=== PATIENT | female | born 1955 | race American Indian/Alaskan Native ===

== ENCOUNTER 2016-07-20 20:18 | Emergency (ER) | payer BC ==
[2016-07-20 23:26] LABS: Basophils % (Auto) 0.5 % (0.0-1.8); Eosinophils % (Auto) 0.2 % (0.0-4.3); Hematocrit 43.8 % (30.3-42.9); Hemoglobin 14.7 gm/dl (10.1-14.3); Mean Corpuscular HGB Conc 34 % (30-34); Mean Corpuscular Hemoglobin 29 pg (28-32); Mean Corpuscular Volume 87 fl (79-97); Platelet Count 274 K/mm3 (140-440); Red Blood Count 5.04 M/mm3 (3.65-5.03); Red Cell Distribution Width 13.3 % (13.2-15.2); White Blood Count 10.9 K/mm3 (4.5-11.0)
[2016-07-20 23:46] LABS: Anion Gap 19 mmol/L; BUN/Creatinine Ratio 16.25; Blood Urea Nitrogen 13 mg/dL (7-17); Calcium 8.7 mg/dL (8.4-10.2); Carbon Dioxide 23 mmol/L (22-30); Chloride 99.6 mmol/L (98-107); Glucose 121 mg/dL (65-100); Sodium 138 mmol/L (137-145)
[2016-07-21 00:46] LABS: Bilirubin,Urine NEG (Negative)
[2016-07-21 00:47] LABS: Bacteria,Urine 1+ /HPF (Negative); Blood,Urine SM (Negative); Ketones,Urine NEG (Negative); Leukocyte Esterase,Urine LG (Negative); Mucus,Urine FEW /HPF; Nitrite,Urine NEG (Negative); Protein,Urine <15 mg/dL mg/dL (Negative); Urobilinogen,Urine < 2.0 mg/dL (<2.0)
--- NOTE | 2016-07-21 08:34 | Emergency Department Report ---
HPI - General Chief Complaint: Pain General Time Seen by Provider: 07/21/16 08:17 - HPI HPI: Chief complaint: Increased urination HPI: Patient is 60-year-old female with a history of hypertension who states she 's been having increased urination for the last 1-1/2 weeks. Patient denies a history of diabetes. Patient denies urgency or dysuria. Slight nausea but no fever or vomiting. Patient states she has slight loose stool today. Mode of arrival: [private car] Source: [Patient] and nursing notes Began: One and a half weeks Duration: See above Context: No abdominal pain Quality: Pain-free Severity: 0 out of 10 Improved with: Nothing Worsened with: Nothing Associated signs and symptoms: See above ED Past Medical Hx - Past Medical History Previous Medical History?: Yes Hx Hypertension: Yes - Surgical History Past Surgical History?: No - Social History Smoking Status: Never Smoker Substance Use Type: None - Medications Home Medications: Home Medications Medication Instructions Recorded Confirmed Last Taken Type Amlodipine-Valsartan 10-160 mg 1 tab PO DAILY 07/20/16 07/20/16 Unknown History Metoprolol Xl 100 mg PO BID 07/20/16 07/20/16 Unknown History Fluconazole [Diflucan TAB] 150 mg PO ONCE #1 tablet 07/21/16 Unknown Rx Fluticasone [Flonase] 1 spray NS QDAY #1 bottle 07/21/16 Unknown Rx Sulfamethoxazole/Trimethoprim 1 each PO BID #20 tablet 07/21/16 Unknown Rx [Bactrim DS TAB] ED Review of Systems ROS: Stated complaint: BODY PAIN, FREQUENT VOIDING,DIARRHEA Other details as noted in HPI ROS Constitutional: No fever , patient states she lays back she feels a strange feeling in her head and when she sits up sometimes she has some spinning. Denies sinus problems or headache. ENT: No uri symptoms Cardiovascular: Patient states she occasionally has a sharp pain under her left breast that is worse with movement. Patient is not having that right now. Respiratory: No sob or cough GI: No nausea vomiting or diarrhea : No dysuria frequency or urgency, Skin: No rash Neuro: No focal weakness or numbness Psych: No depression Jono/lymph: No edema Physical Exam - Physical Exam Vital Signs: Vital Signs 07/20/16 07/21/16 22:36 05:23 Temperature 98.3 F 97.8 F Pulse Rate 106 H 74 Respiratory 18 18 Rate Blood Pressure 149/80 Blood Pressure 170/95 [Left] O2 Sat by Pulse 99 98 Oximetry Physical Exam: GENERAL: The patient is well-developed well-nourished . HEENT: Normocephalic. Atraumatic. Extraocular motions are intact. Patient has moist mucous membranes. TMs negative. Slight swelling nasal closer with yellow crusting discharge. No sinus tenderness to palpation. NECK: Supple. No meningitic signs are noted. There is no adenopathy noted. CHEST/LUNGS: Clear to auscultation. There is no respiratory distress noted. Chest wall nontender to palpation. HEART/CARDIOVASCULAR: Regular. There is no tachycardia. There is no gallop rub or murmur. ABDOMEN: Abdomen is soft, nontender. Patient has normal bowel sounds. There is no abdominal distention. SKIN: There is no rash. There is no edema. There is no diaphoresis. NEURO: The patient is awake, alert, and oriented. The patient is cooperative. The patient has no focal neurologic deficits. The patient has normal speech. MUSCULOSKELETAL: There is no tenderness or deformity. There is no limitation range of motion. There is no evidence of acute injury. ED Course Vital Signs 07/20/16 07/21/16 22:36 05:23 Temperature 98.3 F 97.8 F Pulse Rate 106 H 74 Respiratory 18 18 Rate Blood Pressure 149/80 Blood Pressure 170/95 [Left] O2 Sat by Pulse 99 98 Oximetry ED Medical Decision Making - Lab Data Result diagrams: 07/20/16 23:10 07/20/16 23:10 Laboratory Tests 07/20/16 23:35 Ur Leukocyte Esterase Lg Urine WBC (Auto) 77.0 H Urine RBC (Auto) 4.0 U Epithel Cells (Auto) < 1.0 Urine Bacteria (Auto) 1+ Critical care attestation.: If time is entered above; I have spent that time in minutes in the direct care of this critically ill patient, excluding procedure time. ED Disposition Clinical Impression: UTI (urinary tract infection) Qualifiers: Urinary tract infection type: site unspecified Hematuria presence: without hematuria Qualified Code(s): N39.0 - Urinary tract infection, site not specified Sinusitis Qualifiers: Sinusitis location: unspecified location Chronicity: unspecified Qualified Code (s): J32.9 - Chronic sinusitis, unspecified Disposition: DISCHARGED TO HOME OR SELFCARE Is pt being admited?: No Does the pt Need Aspirin: No Condition: Stable Instructions: Urinary Tract Infection in Women (ED), Sinusitis (ED) Prescriptions: Fluconazole [Diflucan TAB] 150 mg PO ONCE #1 tablet Fluticasone [Flonase] 1 spray NS QDAY #1 bottle Sulfamethoxazole/Trimethoprim [Bactrim DS TAB] 1 each PO BID #20 tablet Referrals: NILSON KAPLAN MD [Primary Care Provider] - 3-5 Days Time of Disposition: 08:31
[2016-07-21 09:03] VITALS: BP 149/72
== END 2016-07-21 09:03 | disposition home or self-care (01) ==
LOC: ED 20:18
DX: N39.0 Urinary tract infection, site not specified (principal); J32.9 Chronic sinusitis, unspecified; I10 Essential (primary) hypertension
CPT/HCPCS: 36415; 80048; 81001; 82962; 85025; 99283

== ENCOUNTER 2020-04-28 23:10 | Emergency (ER) | payer BC ==
[2020-04-29 03:04] VITALS: BP 154/72
--- NOTE | 2020-04-29 04:14 | XRay Report ---
LEFT FOOT RADIOGRAPH, 3 VIEWS INDICATION / CLINICAL INFORMATION: left foot pain COMPARISON: None available. FINDINGS: BONES / JOINT(S): There is lateral subluxation of the fourth toe at the level of the proximal interph alangeal joint. There is a small ossific density along the medial aspect of the fourth toe proximal p halanx which may reflect an adjacent small avulsed fracture fragment. No additional acute displaced f racture identified. SOFT TISSUES: No significant abnormality. ADDITIONAL FINDINGS: None. Signer Name: Arelis Fuentes MD Signed: 04/29/2020 4:10 AM Workstation Name: [id number]
[2020-04-29] MEDS ORDERED: LIDOCAINE-MPF (1%) 10 MG/1 ML VIAL 5 ML INFILTRATI ONE (05:49)
[2020-04-29] MEDS ORDERED: ONDANSETRON 4 MG ODT TAB PO ONE (05:49)
[2020-04-29] MEDS ORDERED: IBUPROFEN 600 MG TAB PO ONE (05:49)
[2020-04-29] MEDS ORDERED: HYDROcodone/ACETAMINOPHEN 7.5-325MG TAB PO ONE (05:50)
--- NOTE | 2020-04-29 06:40 | Emergency Department Report ---
ED Lower Extremity HPI - General Chief Complaint: Extremity Injury, Lower Stated Complaint: FOOT INJURY Source: patient Mode of arrival: Ambulatory Limitations: No Limitations - History of Present Illness Initial Comments: Patient is a 64-year-old -[place] female with a history of hypertension who presents to the ED with complaint of acute onset persistent severe left foot and left fourth toe pain after she slipped on the floor and fell down on a ceramic tile floor and in the process landed on her left foot in a flexed position about 8 hours ago. Patient states that the pain has been persistent and that the swelling has also worsened. Patient states that the pain is worse with ambulation. Patient denies head or neck injuries, back pain, hip pain, knee pain, dizziness, syncope, loss of consciousness, headache, nausea and vomiting, change in vision, numbness and tingling or weakness of lower extremities bilaterally. MD Complaint: foot injury (left foot pain) -: Sudden, hour(s) (8) Injury: Foot: Left (left foot pain), Toes: Left (left 4th toe pain ) Type of Injury: eversion, hyperflexion, other (fall) Place: home Severity: severe Severity scale (0 -10): 8 Improves With: nothing Worsens With: weight bearing, movement, palpation Context: fall, other (slipped and fell down at home and landed on left foot ) Associated Symptoms: snap/pop sensation, swelling, able to partially bear weight. denies: numbness, tingling, unable to bear weight - Related Data Home Medications Medication Instructions Recorded Confirmed Last Taken Amlodipine-Valsartan 10-160 mg 1 tab PO DAILY 07/20/16 07/20/16 Unknown Metoprolol Xl 100 mg PO BID 07/20/16 07/20/16 Unknown Previous Rx's Medication Instructions Recorded Last Taken Type Fluconazole (Nf) [Diflucan TAB] 150 mg PO ONCE #1 tablet 07/21/16 Unknown Rx Fluticasone [Flonase] 1 spray NS QDAY #1 bottle 07/21/16 Unknown Rx Sulfamethoxazole/Trimethoprim 1 each PO BID #20 tablet 07/21/16 Unknown Rx [Bactrim DS TAB] Acetaminophen/Codeine [Tylenol 1 tab PO Q6H PRN #12 tab 04/29/20 Unknown Rx /Codeine # 3 tab] Ibuprofen [Motrin] 600 mg PO Q8H PRN #30 tablet 04/29/20 Unknown Rx Allergies Allergy/AdvReac Type Severity Reaction Status Date / Time No Known Allergies Allergy Verified 07/20/16 22:39 ED Review of Systems ROS: Stated complaint: FOOT INJURY Other details as noted in HPI Constitutional: denies: chills, fever Eyes: denies: eye pain, eye discharge, vision change ENT: denies: ear pain, throat pain Respiratory: denies: cough, shortness of breath, wheezing Cardiovascular: denies: chest pain, palpitations Endocrine: no symptoms reported Gastrointestinal: denies: abdominal pain, nausea, diarrhea Genitourinary: denies: urgency, dysuria, discharge Musculoskeletal: joint swelling (left 4th toe swelling and pain), arthralgia (left foot and left 4th toe pain). denies: back pain Skin: denies: rash, lesions Neurological: denies: headache, weakness, paresthesias Psychiatric: denies: anxiety, depression Hematological/Lymphatic: denies: easy bleeding, easy bruising ED Past Medical Hx - Past Medical History Previous Medical History?: Yes Hx Hypertension: Yes Hx Liver Disease: Yes - Surgical History Past Surgical History?: No - Social History Smoking Status: Never Smoker Substance Use Type: None - Medications Home Medications: Home Medications Medication Instructions Recorded Confirmed Last Taken Type Amlodipine-Valsartan 10-160 mg 1 tab PO DAILY 07/20/16 07/20/16 Unknown History Metoprolol Xl 100 mg PO BID 07/20/16 07/20/16 Unknown History Fluconazole (Nf) [Diflucan TAB] 150 mg PO ONCE #1 tablet 07/21/16 Unknown Rx Fluticasone [Flonase] 1 spray NS QDAY #1 bottle 07/21/16 Unknown Rx Sulfamethoxazole/Trimethoprim 1 each PO BID #20 tablet 07/21/16 Unknown Rx [Bactrim DS TAB] Acetaminophen/Codeine [Tylenol 1 tab PO Q6H PRN #12 tab 04/29/20 Unknown Rx /Codeine # 3 tab] Ibuprofen [Motrin] 600 mg PO Q8H PRN #30 tablet 04/29/20 Unknown Rx ED Physical Exam - General Limitations: No Limitations General appearance: alert, in no apparent distress - Head Head exam: Present: atraumatic, normocephalic, normal inspection - Eye Eye exam: Present: normal appearance, PERRL, EOMI Pupils: Present: normal accommodation - ENT ENT exam: Present: normal exam, normal orophraynx, mucous membranes moist, TM's normal bilaterally, normal external ear exam - Neck Neck exam: Present: normal inspection, full ROM - Respiratory Respiratory exam: Present: normal lung sounds bilaterally. Absent: respiratory distress, wheezes, rales, rhonchi, stridor, chest wall tenderness, accessory muscle use, decreased breath sounds, prolonged expiratory - Cardiovascular Cardiovascular Exam: Present: regular rate, normal rhythm, normal heart sounds. Absent: systolic murmur, diastolic murmur, rubs, gallop - GI/Abdominal GI/Abdominal exam: Present: soft, normal bowel sounds. Absent: tenderness, guarding, rebound, hyperactive bowel sounds, hypoactive bowel sounds, organomegaly - Extremities Exam Extremities exam: Present: normal inspection, tenderness (Palpable left 4th toe and foot tenderness with mild swelling and limited ROM due to pain), normal capillary refill, joint swelling (Swollen tender left 4th toe and foot). Absent: full ROM (limioted ROM of left 4th toe due to pain), pedal edema - Back Exam Back exam: Present: normal inspection, full ROM. Absent: tenderness, CVA tenderness (R), CVA tenderness (L), muscle spasm, paraspinal tenderness, vertebral tenderness - Neurological Exam Neurological exam: Present: alert, oriented X3, CN II-XII intact, normal gait, reflexes normal - Psychiatric Psychiatric exam: Present: normal affect, normal mood - Skin Skin exam: Present: warm, dry, intact, normal color. Absent: rash ED Course Vital Signs 04/29/20 03:03 Temperature 97.9 F Pulse Rate 83 Respiratory 18 Rate Blood Pressure 154/72 [Left] O2 Sat by Pulse 100 Oximetry - Orthopedic Joint Reduction Joint #1 Consent Obtained: verbal consent Time Out Performed: Yes Side: left Joint Reduction Location: toe (left 4th toe) Analgesia: digital block Local Anesthetic Used: Lidocaine 1% Amount of Anesthetic Used (mls): 5 Technique Used: direct manipulation Post-Reduction Neuro Exam: intact Post-Reduction Vascular Exam: intact Post Reduction X-Ray Obtained: Yes Post Reduction X-Ray Results: reduced Splint Applied: Yes Patient Tolerated Procedure: well ED Lower Extremity MDM - Radiology Data Radiology results: report reviewed, image reviewed Findings [facility] [address] [place] [address] XRay Report Signed Patient: NAZARIO HOLGUIN MR#: [id number] : 1955 Acct:[id number] Age/Sex: 64 / F ADM Date: 04/28/20 Loc: ED Attending Dr: Ordering Physician: ALEXA LEA MD Date of Service: 04/29/20 Procedure(s): XR foot 3+V LT Accession Number(s): [id number] cc: ED MD LEONORA Fluoro Time In Minutes: LEFT FOOT RADIOGRAPH, 3 VIEWS INDICATION / CLINICAL INFORMATION: left foot pain COMPARISON: None available. FINDINGS: BONES / JOINT(S): There is lateral subluxation of the fourth toe at the level of the proximal interphalangeal joint. There is a small ossific density along the medial aspect of the fourth toe proximal phalanx which may reflect an adjacent small avulsed fracture fragment. No additional acute displaced fracture identified. SOFT TISSUES: No significant abnormality. ADDITIONAL FINDINGS: None. Signer Name: Arelis Fuentes MD Signed: 04/29/2020 4:10 AM Workstation Name: [id number] Transcribed By: [facility] Dictated By: Arelis Fuentes MD Electronically Authenticated By: Arelis Fuentes MD Signed Date/Time: 04/29/20409 DD/ 6 TD/TT: Findings [facility] [address] [place] [address] XRay Report Signed Patient: NAZARIO HOLGUIN MR#: [id number] : 1955 Acct:[id number] Age/Sex: 64 / F ADM Date: 04/28/20 Loc: ED Attending Dr: Ordering Physician: NINA CANADA Date of Service: 04/29/20 Procedure(s): XR foot 2V LT Accession Number(s): [id number] cc: NINA [place] Fluoro Time In Minutes: LEFT FOOT RADIOGRAPH, 2 VIEWS INDICATION / CLINICAL INFORMATION: Post-reduction x-ray of left 4th toe COMPARISON: Left foot radiograph earlier same day FINDINGS: There has been interval reduction of the fourth toe which now appears to be in normal anatomic alignment. The adjacent small fracture fragment is again seen. Overlying soft tissue swelling is noted. Signer Name: Arelis Fuentes MD Signed: 04/29/2020 7:29 AM Workstation Name: [id number] Transcribed By: [facility] Dictated By: Arelis Fuentes MD Electronically Authenticated By: Arelis Fuentes MD Signed Date/Time: 04/29/20728 DD/ 6 TD/TT: - Medical Decision Making This is a 64-year-old -[place] female with a history of hypertension who presents to the ED with complaint of acute onset persistent severe left foot and left fourth toe pain after she slipped on the floor and fell down on a ceramic tile floor and in the process landed on her left foot in a flexed position about 8 hours ago. Patient states that the pain has been persistent and that the swelling has also worsened. Patient states that the pain is worse with ambulation. In the ED, patient is alert and oriented x3 and is not in distress but appears to be in pain. Patient was treated for pain in the ED and left foot x-ray showed a lateral subluxation of the fourth toe at the level of the proximal interphalangeal joint. There is a small ossific density along the medial aspect of the fourth toe proximal phalanx which may reflect an adjacent small avulsed fracture fragment. No additional acute displaced fracture identified. The patient's dislocated left fourth toe was reduced manually after application of lidocaine 1% solution as a local anesthesia. Patient tolerated the procedure well. The post reduction right foot x-ray showed a normal anatomical alignment of the left fourth toe at the PIP joint revealing a successful reduction. Patient left foot was fitted with postop shoe and the left fourth toe jamil taped with left third toe. Patient was therefore discharged home on pain medications and given a referral to the orthopedic surge on on-call Dr. Singh for follow-up. Patient was advised to contact Dr. Singh's office first thing in the morning on Thursday, April 30, 2020 to schedule a follow-up appointment. Patient was otherwise advised to return to the ED immediately if symptoms get worse. - Differential Diagnosis Toe fracture; foot fracture; Foot sprain; Toe sprain; Toe dislocation Critical care attestation.: If time is entered above; I have spent that time in minutes in the direct care of this critically ill patient, excluding procedure time. ED Disposition Clinical Impression: Closed dislocation of fourth toe of left foot Qualifiers: Encounter type: initial encounter Qualified Code(s): S93.105A - Unspecified dislocation of left toe(s), initial encounter Closed fracture of phalanx of left fourth toe Qualifiers: Encounter type: initial encounter Qualified Code(s): S92.502A - Displaced unspecified fracture of left lesser toe(s), initial encounter for closed fracture Sprain of left foot Qualifiers: Encounter type: initial encounter Qualified Code(s): S93.602A - Unspecified sprain of left foot, initial encounter Disposition: TO HOME OR SELFCARE Is pt being admited?: No Does the pt Need Aspirin: No Condition: Stable Instructions: Toe Fracture, [id number], Toe Dislocation, [id number], Foot Sprain Additional Instructions: The left foot x-ray shows left fourth toe dislocation and avulsion fracture at the PIP joint. Therefore take medications with food, drink plenty of fluids and follow-up with the orthopedic surgeon Dr. Singh for further evaluation. Contact Dr. Singh's office first thing in the morning on Thursday April 30, 2020 to schedule a follow-up appointment. Return to the ED immediately if symptoms get worse. Prescriptions: Ibuprofen [Motrin] 600 mg PO Q8H PRN #30 tablet PRN Reason: Pain Acetaminophen/Codeine [Tylenol /Codeine # 3 tab] 1 tab PO Q6H PRN #12 tab PRN Reason: Severe pain Referrals: LORRAINE SINGH MD [Staff Physician] - 2-3 Days NILSON KAPLAN MD [Primary Care Provider] - 3-5 Days Time of Disposition: 06:43 Print Language: VENEZUELAN
--- NOTE | 2020-04-29 07:33 | XRay Report ---
LEFT FOOT RADIOGRAPH, 2 VIEWS INDICATION / CLINICAL INFORMATION: Post-reduction x-ray of left 4th toe COMPARISON: Left foot radiograph earlier same day FINDINGS: There has been interval reduction of the fourth toe which now appears to be in normal anatomic alignm ent. The adjacent small fracture fragment is again seen. Overlying soft tissue swelling is noted. Signer Name: Arelis Fuentes MD Signed: 04/29/2020 7:29 AM Workstation Name: [id number]
== END 2020-04-29 07:19 | disposition home or self-care (01) ==
LOC: ED 23:10
DX: S93.115A Dislocation of interphalangeal joint of left lesser toe(s), initial encounter (principal); S92.512A Displaced fracture of proximal phalanx of left lesser toe(s), initial encounter for closed fracture; S93.602A Unspecified sprain of left foot, initial encounter; I10 Essential (primary) hypertension; Z79.1 Long term (current) use of non-steroidal anti-inflammatories (NSAID); Z79.899 Other long term (current) drug therapy; W01.0XXA Fall on same level from slipping, tripping and stumbling without subsequent striking against object, initial encounter; Y93.89 Activity, other specified; Y92.89 Other specified places as the place of occurrence of the external cause; Y99.8 Other external cause status
CPT/HCPCS: Q0162